=== PATIENT | female | born 1950 | race Caucasian/White ===

== ENCOUNTER 2022-12-06 15:13 | Emergency (ER) | payer OTHER ==
[~2022-12-06] VITALS: Ht 160 cm; Wt 81.8 kg
[2022-12-06 15:18] VITALS: BP 149/81
[2022-12-06 16:35] LABS: BASO # 0.1 10^3/uL (0.0-0.2); BASO % 0.5 % (0.0-1.0); EOS # 0.2 10^3/uL (0.0-0.5); EOS % 1.9 % (0.0-3.0); HEMATOCRIT 45.1 % (36.0-47.0); HEMOGLOBIN 14.4 g/dl (12.0-15.5); LYMPH # 1.9 10^3/uL (1.5-5.0); LYMPH % 16.8 % (24.0-44.0); MEAN CORPUSCULAR HEMOGLOBIN 30.1 pg (27.0-33.0); MEAN CORPUSCULAR HGB CONC 31.9 g/dl (32.0-36.5); MEAN CORPUSCULAR VOLUME 94.2 fl (80.0-96.0); MONO # 0.7 10^3/uL (0.0-0.8); NEUTROPHILS # 8.2 10^3/uL (1.5-8.5); NEUTROPHILS % 74.3 % (36.0-66.0); PLATELET COUNT, AUTOMATED 281 10^3/uL (150-450); RED BLOOD COUNT 4.79 10^6/uL (4.00-5.40); WHITE BLOOD COUNT 11.1 10^3/uL (4.0-10.0)
[2022-12-06 16:54] LABS: LIPASE 40 U/L (12-53)
[2022-12-06 16:56] LABS: ALBUMIN 4.3 G/DL (3.2-5.2); ALKALINE PHOSPHATASE 104 U/L (46-116); ALT/SGPT 26 U/L (7.0-40); AST/SGOT < 8 U/L (<34); BILIRUBIN,DIRECT 0.2 MG/DL (<0.4); BILIRUBIN,TOTAL 0.5 MG/DL (0.3-1.2); TOTAL PROTEIN 7.6 G/DL (5.7-8.2)
[2022-12-06] MEDS ORDERED: FLOM0.4C39 PO (19:19)
[2022-12-06] MEDS ORDERED: ONDA4TAB6 PO (19:19)
[2022-12-06] MEDS ORDERED: BACT800T5 PO (19:19)
[2022-12-06] MEDS ORDERED: IBUP-1022 PO (19:19)
== END 2022-12-06 19:33 | disposition home or self-care (01) ==
LOC: M ED 15:13
DX: N20.1 Calculus of ureter (principal); K80.20 Calculus of gallbladder without cholecystitis without obstruction; D25.9 Leiomyoma of uterus, unspecified; N28.1 Cyst of kidney, acquired; R16.0 Hepatomegaly, not elsewhere classified; K65.4 Sclerosing mesenteritis; E11.9 Type 2 diabetes mellitus without complications; I10 Essential (primary) hypertension; Z87.442 Personal history of urinary calculi

== ENCOUNTER → 2025-04-01 | Outpatient (CLI) | payer MEDICARE, OTHER ==
[~2025-04-01] MED LIST: ACETAMINOPHEN 325 MG TAB PO PRN; ANAS1TAB2 PO; BACT800T5 PO; CALC600T61 PO; ECOT81TA5 PO; GLUC500C37 PO; HYDR-3713 PO; IBUP600T42 PO; LOSA50TA28 PO; METF500T13 PO; METO1TAB7 PO; MORPHINE 2 MG/ML 1 ML VIAL IV PRN; NS (Normal Saline) 0.9% 1,000 ML IV SCH; ONDA-282 PO; ONDANSETRON 4MG 2ML VIAL IV PRN; OXYB5TAB14 PO; PERCOCET 5MG/325MG TAB PO PRN; PITA4TAB2 PO; SODIUM CHLORIDE 0.9% 1000 ML XX SCH; SPIR-10 PO; TAMS-18 PO; VITA100093 PO
[2025-04-01 09:25] VITALS: TEMP 97.8
[2025-04-01] MEDS: NS (Normal Saline) 0.9% 1,000 ML IV SCH (09:47)
[2025-04-01] MEDS: CIPROFLOXACIN 400 MG in IV 1 EA IV ONE (09:47)
[2025-04-01 09:51] LABS: PLATELET COUNT, AUTOMATED 279 10^3/uL (150-450)
[2025-04-01 10:08] LABS: INR 0.85
[2025-04-01] MEDS: MIDAZOLAM INJ 2 MG/2 ML VIAL IV PRN (10:35)
[2025-04-01] MEDS: LIDOCAINE 1% MDV 20 ML VIAL SC SCH (11:00)
[2025-04-01] MEDS: ISOVUE-300 61% 100 ML VIAL IV SCH (11:02)
[2025-04-01 13:10] VITALS: BP 125/60; O2SAT 98
== END ==
LOC: M IRPRO 09:11
PROVIDERS: ATTEND Urology
DX: N20.0 Calculus of kidney (principal)
CPT/HCPCS: 50433; 85027; 85610; 99152; 99153; C1758; C1769; C1894; J0744; J2250; J3010; Q9967

== ENCOUNTER 2025-04-04 20:56 | Observation (INO) | payer MEDICARE, OTHER ==
[~2025-04-04] VITALS: Ht 162.6 cm; Wt 74.4 kg
[~2025-04-04 20:56] MED LIST changes: -HYDR-3713 PO; -MACR100C43 PO; -OXYB5TAB14 PO; -PYRI1TAB5 PO
[2025-04-05 00:38] LABS: BASO # 0.1 10^3/uL (0.0-0.2); BASO % 0.5 % (0.0-1.0); EOS # 0.3 10^3/uL (0.0-0.5); EOS % 2.1 % (0.0-3.0); LYMPH # 2.1 10^3/uL (1.5-5.0); LYMPH % 16.0 % (24.0-44.0); MONO # 0.8 10^3/uL (0.0-0.8); MONO % 6.1 % (2.0-8.0); NEUTROPHILS # 9.8 10^3/uL (1.5-8.5); NEUTROPHILS % 74.9 % (36.0-66.0); PLATELET COUNT, AUTOMATED 318 10^3/uL (150-450)
[2025-04-05 00:57] LABS: CALCIUM LEVEL 10.7 MG/DL (8.3-10.6); CARBON DIOXIDE LEVEL 25.0 MMOL/L (20-31); CHLORIDE LEVEL 100.0 MMOL/L (98-107); CREATININE FOR GFR 0.91 MG/DL (0.55-1.30); GLOMERULAR FILTRATION RATE 66.6 (>39); POTASSIUM SERUM 4.7 MMOL/L (3.5-5.1); SODIUM LEVEL 140.0 MMOL/L (136-145)
[2025-04-05] MEDS ORDERED: MOM 30 ML SUSPENSION UDC PO PRN (01:35)
[2025-04-05] MEDS ORDERED: ONDANSETRON 4MG 2ML VIAL IV PRN (01:35)
[2025-04-05] MEDS ORDERED: MAALOX 30 ML SUSP *UDC PO PRN (01:35)
[2025-04-05] MEDS ORDERED: ACETAMINOPHEN 325 MG TAB PO PRN (01:35)
[2025-04-05] MEDS: NS (Normal Saline) 0.9% 1,000 ML IV SCH ×2 (02:39→16:01)
[2025-04-05 02:49] LABS: ALT/SGPT 22.0 U/L (7.0-40); AST/SGOT 29.0 U/L (<34); MAGNESIUM LEVEL 1.8 MG/DL (1.8-2.4)
[2025-04-05 05:15] VITALS: BP 131/70; TEMP 97.2; O2SAT 97
[2025-04-05 07:58] VITALS: BP 126/71; TEMP 97.3; O2SAT 97
[2025-04-05] MEDS: DOCUSATE SODIUM 100 MG CAPSULE PO SCH (08:19)
[2025-04-05 08:28] LABS: PLATELET COUNT, AUTOMATED 254 10^3/uL (150-450)
[2025-04-05 08:44] LABS: ALT/SGPT 16.0 U/L (7.0-40); AST/SGOT 17.0 U/L (<34); CALCIUM LEVEL 9.5 MG/DL (8.3-10.6); CARBON DIOXIDE LEVEL 25.0 MMOL/L (20-31); CHLORIDE LEVEL 103.0 MMOL/L (98-107); CREATININE FOR GFR 0.81 MG/DL (0.55-1.30); GLOMERULAR FILTRATION RATE 76.6 (>39); MAGNESIUM LEVEL 1.6 MG/DL (1.8-2.4); POTASSIUM SERUM 4.3 MMOL/L (3.5-5.1); SODIUM LEVEL 140.0 MMOL/L (136-145)
[2025-04-05] MEDS ORDERED: HOME MED LIST COMPLETE! XX SCH (09:20)
[2025-04-05 12:00] VITALS: BP 126/71; TEMP 97.7; O2SAT 94
[2025-04-05 14:15] VITALS: TEMP 99.5
[2025-04-05] MEDS: MIDAZOLAM INJ 2 MG/2 ML VIAL IV PRN (16:00)
[2025-04-05] MEDS: CIPROFLOXACIN 400 MG in IV 1 EA IV ONE (16:01)
[2025-04-05] MEDS: SODIUM CHLORIDE 0.9% 1000 ML XX SCH (16:01)
[2025-04-05] MEDS: ISOVUE-300 61% 100 ML VIAL IV SCH (16:09)
[2025-04-05 16:10] VITALS: BP 163/72; O2SAT 100
[2025-04-05] MEDS: LIDOCAINE 1% MDV 20 ML VIAL SC SCH (16:10)
[2025-04-05] MEDS ORDERED: OXYB5TAB14 PO (17:08)
[2025-04-05] MEDS ORDERED: HYDR-3713 PO (17:12)
== END 2025-04-05 18:42 | disposition home or self-care (01) ==
LOC: M ED 20:56 → M ED INP 20:57 → M MSPAV 04-05 05:11
PROVIDERS: ADMIT Student in an Organized Health Care Education/Training Program; ATTEND Student in an Organized Health Care Education/Training Program
DX: T83.092A Other mechanical complication of nephrostomy catheter, initial encounter (principal); N20.1 Calculus of ureter; N13.39 Other hydronephrosis; E11.9 Type 2 diabetes mellitus without complications; I10 Essential (primary) hypertension; Z79.84 Long term (current) use of oral hypoglycemic drugs
CPT/HCPCS: 36415; 50435; 51702; 80048; 80053; 80076; 81001; 83735; 85025; 85027; 86850; 86900; 86901; 87086; 93005; 96360; 96361; 99152; 99285; C1758; G0378; J0744; J2250; J3010; Q9967

== ENCOUNTER → 2025-04-04 | Outpatient (REF) | payer MEDICARE, OTHER ==
[~2025-04-04] MED LIST changes: -ACETAMINOPHEN 325 MG TAB PO PRN; +MACR100C43 PO; -MORPHINE 2 MG/ML 1 ML VIAL IV PRN; -NS (Normal Saline) 0.9% 1,000 ML IV SCH; -ONDANSETRON 4MG 2ML VIAL IV PRN; -PERCOCET 5MG/325MG TAB PO PRN; +PYRI1TAB5 PO; -SODIUM CHLORIDE 0.9% 1000 ML XX SCH
[2025-04-04 18:02] LABS: APPEARANCE, URINE CLEAR (CLEAR); BACTERIA, URINE AUTO NEGATIVE (NEGATIVE); BILIRUBIN, URINE AUTO NEGATIVE (NEGATIVE); BLOOD, URINE BLOOD 3+ (NEGATIVE); GLUCOSE, URINE (UA) AUTO NEGATIVE (NEGATIVE); KETONE, URINE AUTO NEGATIVE (NEGATIVE); LEUKOCYTE ESTERASE, URINE AUTO TRACE (NEGATIVE); MUCUS, URINE SMALL (NEGATIVE); NITRITE, URINE AUTO NEGATIVE (NEGATIVE); PROTEIN, URINE AUTO 2+ mg/dL (NEGATIVE); RBC, URINE AUTO 6 /HPF (0-3); SPECIFIC GRAVITY URINE AUTO 1.004 (1.002-1.035); SQUAMOUS EPITHELIAL CELL UR AU 2 /HPF (0-6); TRANSITIONAL EPITHELIAL AUTO <1 /HPF; UROBILINOGEN, URINE AUTO 0.2 mg/dL (0.0-2.0); WBC, URINE AUTO 3 /HPF (0-3)
== END ==
LOC: M SMT 16:52
PROVIDERS: ATTEND Nurse Practitioner Family
DX: R39.9 Unspecified symptoms and signs involving the genitourinary system (principal)

== ENCOUNTER 2025-04-08 10:00 | Day surgery (SDC) | payer MEDICARE, OTHER ==
[~2025-04-08] VITALS: Ht 162.6 cm; Wt 77.6 kg
[~2025-04-08 10:00] MED LIST changes: +HYDR-3713 PO; +OXYB5TAB14 PO
[2025-04-08] MEDS ORDERED: LIDOCAINE 2% 100 MG/5 ML SDV (FOR ANES.) As Ordered ONE (10:41)
[2025-04-08] MEDS ORDERED: MIDAZOLAM INJ 2 MG/2 ML VIAL As Ordered ONE (10:41)
[2025-04-08] MEDS: LR 1,000 ML IV SCH (10:44)
[2025-04-08] MEDS ORDERED: ROCURONIUM BROMIDE 50MG/5ML VIAL As Ordered ONE (11:43)
[2025-04-08] MEDS ORDERED: dexAMETHasone 4 MG/ML 1 ML VIAL As Ordered ONE (11:43)
[2025-04-08] MEDS: ceFAZolin SOD 2 GM IV ONCE IV ONE (12:15)
[2025-04-08] MEDS ORDERED: SUGAMMADEX SODIUM 200 MG/2 ML VIAL As Ordered ONE (13:02)
[2025-04-08] MEDS ORDERED: KETOROLAC 30 MG/ML 1 ML VIAL As Ordered ONE (13:02)
[2025-04-08] MEDS ORDERED: ONDANSETRON 4MG 2ML VIAL As Ordered ONE (13:02)
[2025-04-08] MEDS: ISOVUE-300 61% 100 ML VIAL As Ordered ONE (14:00)
[2025-04-08] MEDS ORDERED: ONDANSETRON 4MG 2ML VIAL IV PRN (14:15)
[2025-04-08] MEDS ORDERED: HYDR-3713 PO (14:22)
[2025-04-08] MEDS ORDERED: PYRI1TAB5 PO (14:22)
[2025-04-08] MEDS ORDERED: OXYB5TAB14 PO (14:22)
[2025-04-08] MEDS ORDERED: MACR100C43 PO (14:22)
[2025-04-08] MEDS: HYDROMORPHONE HCL 0.5 MG/0.5 ML SYRINGE IV PRN (14:42)
[2025-04-08 15:45] VITALS: BP 140/72; TEMP 97.2; O2SAT 97
== END 2025-04-08 16:05 | disposition home or self-care (01) ==
LOC: M SDC 10:00
PROVIDERS: ATTEND Urology
DX: N20.0 Calculus of kidney (principal); E11.9 Type 2 diabetes mellitus without complications; I10 Essential (primary) hypertension; E78.00 Pure hypercholesterolemia, unspecified; M19.90 Unspecified osteoarthritis, unspecified site; C50.512 Malignant neoplasm of lower-outer quadrant of left female breast; Z79.899 Other long term (current) drug therapy; Z79.811 Long term (current) use of aromatase inhibitors; Z87.891 Personal history of nicotine dependence
CPT/HCPCS: 50081; 74018; 76000; C1769; C1887; C2617; J0690; J1100; J1171; J1885; J2250; J2405; J3010; Q9967

== ENCOUNTER 2025-06-09 07:35 | Day surgery (SDC) | payer MEDICARE, OTHER ==
[~2025-06-09] VITALS: Ht 162.6 cm; Wt 76.7 kg
[~2025-06-09 07:35] MED LIST changes: +MACR100C43 PO; +PYRI1TAB5 PO
[2025-06-09] MEDS ORDERED: GLUCAGON INJ 1 MG VIAL SC PRN (08:20)
[2025-06-09] MEDS ORDERED: INSULIN LISPRO (NovoLOG) PER UNIT SC PRN (08:20)
[2025-06-09] MEDS ORDERED: GLUCOSE 4 GM CHEW PO PRN (08:20)
[2025-06-09] MEDS ORDERED: LIDOCAINE 1% SDV 5 ML VIAL SC PRN (08:20)
[2025-06-09] MEDS ORDERED: DEXTROSE 50% 50 ML SYRINGE IV PRN (08:20)
[2025-06-09] MEDS: LR 1,000 ML IV SCH (08:55)
[2025-06-09] MEDS ORDERED: KETOROLAC 30 MG/ML 1 ML VIAL As Ordered ONE (09:18)
[2025-06-09] MEDS ORDERED: LIDOCAINE 2% 100 MG/5 ML SDV (FOR ANES.) As Ordered ONE (09:18)
[2025-06-09] MEDS ORDERED: GLYCOPYRROLATE INJ 0.2 MG/ML 2 ML VIAL As Ordered ONE (09:18)
[2025-06-09] MEDS ORDERED: ONDANSETRON 4MG/2ML VIAL As Ordered ONE (09:18)
[2025-06-09] MEDS: ceFAZolin SOD 2 GM IV ONCE IV ONE (11:00)
[2025-06-09 12:45] VITALS: BP 136/76; TEMP 98.5; O2SAT 97
== END 2025-06-09 12:50 | disposition home or self-care (01) ==
LOC: M SDC 07:35
PROVIDERS: ATTEND Urology
DX: N20.0 Calculus of kidney (principal); I10 Essential (primary) hypertension; E78.5 Hyperlipidemia, unspecified; E11.9 Type 2 diabetes mellitus without complications; Z85.3 Personal history of malignant neoplasm of breast; Z92.21 Personal history of antineoplastic chemotherapy; Z79.84 Long term (current) use of oral hypoglycemic drugs; Z79.899 Other long term (current) drug therapy
CPT/HCPCS: 50590; 74018; J0688; J1596; J1885; J2405; J3010